=== PATIENT | male | born 1935 | race African-American/Black ===

== ENCOUNTER 2024-06-29 18:27 | Emergency (ER) | payer OTHER ==
[~2024-06-29] VITALS: Ht 180.3 cm; Wt 94.0 kg
[2024-06-29 18:30] VITALS: O2SAT 97
[2024-06-29 20:14] LABS: BASOPHILS % 0.5 % (0.0-2.0); EOSINOPHILS % 0.7 % (0.0-5.0); HEMOGLOBIN. 13.8 g/dL (14.0-18.0); LYMPHOCYTES % 15.4 % (20.0-50.0); MEAN CORPUSCULAR HGB CONC 32.1 g/dL (31.0-37.0); MEAN CORPUSCULAR VOLUME 83.9 fL (80.0-94.0); MEAN PLATELET VOLUME 7.6 fl (7.4-10.4); NEUTROPHILS % 73.4 % (40.0-76.0); PLATELET 425 x1000/uL (130-400); RED BLOOD CELL COUNT 5.13 mill/uL (4.7-6.1); WHITE BLOOD COUNT 12.1 x1000/uL (4.5-11.0)
[2024-06-29 20:22] LABS: CARBON DIOXIDE 25 mEq/L (21-32); CHLORIDE 100 mEq/L (98-107); POTASSIUM 4.3 mEq/L (3.5-5.1); SODIUM 133 mEq/L (136-145)
[2024-06-29 20:23] LABS: CALCIUM 9.6 mg/dL (8.7-10.4)
[2024-06-29 20:27] LABS: CREATININE 2.9 mg/dL (0.6-1.3)
[2024-06-29 20:28] LABS: GLUCOSE 280 mg/dL (70-105); UREA NITROGEN BLOOD 29 mg/dL (9-23)
[2024-06-29 20:29] LABS: ALANINE AMINOTRANSFERASE < 7 IU/L (10-49); ALBUMIN 3.8 g/dL (3.2-4.8); ASPARTATE AMINOTRANSFERASE 16 IU/L (<34)
[2024-06-29 20:30] LABS: BILIRUBIN DIRECT 0.2 mg/dL (<=3.0); BILIRUBIN TOTAL 0.7 mg/dL (0.1-1.0); PROTEIN TOTAL 7.4 g/dL (6.0-8.3)
[2024-06-29 20:50] LABS: TROPONIN I HIGH SENSITIVITY 191 ng/L (3.0-53)
[2024-06-29] MEDS ORDERED: VANCOMYCIN 1G PREMIX 200 ML IV ONE (22:15)
[2024-06-29] MEDS: SODIUM CHLORIDE 0.9% 1000ML BAG (SEPSIS BOLUS) IV ONE (22:25)
[2024-06-29] MEDS: PIPERACILLIN/TAZO 3.375G/50ML 50 ML IV ONE (22:26)
[2024-06-29] MEDS ORDERED: MAGNESIUM/ALUMINUM HYDROXIDE/SIMETHICONE 30ML UDC PO PRN (23:00)
[2024-06-29] MEDS ORDERED: DEXTROSE 50% WATER 50ML SYRINGE IV PRN (23:00)
[2024-06-29] MEDS ORDERED: ONDANSETRON HCL 4MG/2ML INJ IV PRN (23:00)
[2024-06-29] MEDS ORDERED: DOCUSATE SODIUM 100MG CAPSULE PO PRN (23:00)
[2024-06-29] MEDS ORDERED: ACETAMINOPHEN 325MG TABLET PO PRN (23:00)
[2024-06-29] MEDS ORDERED: CLONIDINE 0.1MG TABLET PO PRN (23:00)
[2024-06-29] MEDS ORDERED: IPRATROPIUM/ALBUTEROL 0.5-3(2.5)MG/3ML NEB HHN PRN (23:00)
[2024-06-30] MEDS: VANCOMYCIN 1GM PMX (XELLIA) 200 ML IV NR (00:49)
[2024-06-30 00:53] LABS: CLARITY URINE CLEAR (CLEAR); COLOR URINE YELLOW (YELLOW); GLUCOSE URINE NEGATIVE (NEGATIVE); KETONES URINE TRACE (NEGATIVE); LEUKOCYTE ESTERASE URINE TRACE (NEGATIVE); NITRITE URINE NEGATIVE (NEGATIVE); OCCULT BLOOD URINE NEGATIVE (NEGATIVE); PH URINE 5.5 (4.5-8.0); PROTEIN URINE 2+ (NEGATIVE); SPECIFIC GRAVITY URINE 1.016 (1.005-1.030); UROBILINOGEN URINE 0.2 E.U./dL (0.2-1.0)
[2024-06-30 01:04] LABS: TROPONIN I HIGH SENSITIVITY 192 ng/L (3.0-53)
[2024-06-30 01:05] LABS: BACTERIA URINE NONE SEEN; RBC URINE 0-2 /hpf (0-2); SQUAMOUS EPITHELIAL CELL URINE NONE SEEN /lpf (RARE/1+); WBC URINE 0-2 /hpf (0-2)
[2024-06-30] MEDS: SODIUM CHLORIDE 0.9% 1,000 ML IV SCH (01:28)
[2024-06-30 02:00] VITALS: TEMP 37.00296
[2024-06-30 02:28] VITALS: TEMP 98.6
[2024-06-30 03:30] VITALS: BP 144/84; PULSE 80; RESP 18; O2SAT 98
[2024-06-30] MEDS ORDERED: INSULIN LISPRO 100 UNITS/ML SUBCUT SCH ×2 (08:20)
[2024-06-30] MEDS ORDERED: FAMOTIDINE 20MG/2ML VIAL IV SCH (09:00)
[2024-06-30] MEDS ORDERED: BLOOD SUGAR DIAGNOSTIC STRIP TEST SCH (09:00)
[2024-06-30] MEDS ORDERED: PIPERACILLIN/TAZO 3.375G/50ML IV SCH (09:00)
[2024-06-30] MEDS ORDERED: ENOXAPARIN 30MG/0.3ML SYR SUBCUT SCH (09:00)
[2024-06-30] MEDS ORDERED: PIPERACILLIN/TAZOBACTAM 3.375 G in DEXTROSE 5% WATER 50 ML IV SCH (20:00)
[2024-07-01] MEDS ORDERED: VANCOMYCIN 1GM PMX (XELLIA) 200 ML IV SCH (22:00)
== END 2024-06-30 04:01 | disposition short-term general hospital (02) ==
LOC: ER 18:27
DX: A41.9 Sepsis, unspecified organism (principal); R65.20 Severe sepsis without septic shock; R79.89 Other specified abnormal findings of blood chemistry; N17.9 Acute kidney failure, unspecified; E11.9 Type 2 diabetes mellitus without complications; I10 Essential (primary) hypertension; Z20.822 Contact with and (suspected) exposure to COVID-19
CPT/HCPCS: 99291; 93970; 96365; 96366; 80076; 80048; 83036; 83605; 85025; 87040; 84484 ×2; 84145; 71045; 93005; 96375; 87426; 81003; 85379; 36415; J3370; J2543; J7030

== ENCOUNTER 2024-08-11 17:15 | Inpatient (IN) | payer OTHER, MEDICARE ==
[~2024-08-11] VITALS: Ht 182.9 cm; Wt 88.9 kg
[2024-08-11] MEDS: SODIUM CHLORIDE 0.45% 1,000 ML IV SCH (03:40)
[2024-08-11] MEDS: SODIUM CHLORIDE 0.9% (SEPSIS BOLUS) IV ONE (17:59)
[2024-08-11] MEDS: LABETALOL 5MG/ML 4ML INJ IV ONE (19:24)
[2024-08-11 20:01] LABS: CLARITY URINE CLEAR (CLEAR); COLOR URINE YELLOW (YELLOW); GLUCOSE URINE 1+ (NEGATIVE); KETONES URINE NEGATIVE (NEGATIVE); LEUKOCYTE ESTERASE URINE NEGATIVE (NEGATIVE); NITRITE URINE NEGATIVE (NEGATIVE); OCCULT BLOOD URINE NEGATIVE (NEGATIVE); PH URINE 7.5 (4.5-8.0); PROTEIN URINE 2+ (NEGATIVE); SPECIFIC GRAVITY URINE 1.009 (1.005-1.030); UROBILINOGEN URINE 0.2 E.U./dL (0.2-1.0)
[2024-08-11 20:18] LABS: BACTERIA URINE TRACE; SQUAMOUS EPITHELIAL CELL URINE RARE /lpf (RARE/1+)
[2024-08-11 20:19] LABS: RBC URINE 0-2 /hpf (0-2); WBC URINE 0-2 /hpf (0-2)
[2024-08-11 20:29] LABS: HEMATOCRIT. 46.6 % (42.0-52.0); HEMOGLOBIN. 14.8 g/dL (14.0-18.0); MEAN CORPUSCULAR HEMOGLOBIN 26.5 pg (28.0-32.0); MEAN CORPUSCULAR HGB CONC 31.7 g/dL (31.0-37.0); MEAN CORPUSCULAR VOLUME 83.6 fL (80.0-94.0); MEAN PLATELET VOLUME 7.3 fl (7.4-10.4); PLATELET 397 x1000/uL (130-400); RED BLOOD CELL COUNT 5.57 mill/uL (4.7-6.1); RED CELL DISTRIBUTION WIDTH 14.8 % (11.6-14.6); WHITE BLOOD COUNT 10.9 x1000/uL (4.5-11.0)
[2024-08-11 20:34] LABS: CHLORIDE 104 mEq/L (98-107); POTASSIUM 3.6 mEq/L (3.5-5.1); SODIUM 139 mEq/L (136-145)
[2024-08-11 20:35] LABS: CARBON DIOXIDE 26 mEq/L (21-32)
[2024-08-11 20:36] LABS: CALCIUM 9.9 mg/dL (8.7-10.4)
[2024-08-11 20:38] LABS: DIFFERENTIAL COMMENT 1
[2024-08-11 20:40] LABS: GLUCOSE 228 mg/dL (70-105)
[2024-08-11 20:41] LABS: INR 1.1; UREA NITROGEN BLOOD 14 mg/dL (9-23)
[2024-08-11 20:42] LABS: ALANINE AMINOTRANSFERASE < 7 IU/L (10-49); ALBUMIN 4.3 g/dL (3.2-4.8); ASPARTATE AMINOTRANSFERASE 19 IU/L (<34)
[2024-08-11 20:43] LABS: BILIRUBIN DIRECT 0.2 mg/dL (<=3.0); BILIRUBIN TOTAL 0.6 mg/dL (0.1-1.0); PROTEIN TOTAL 8.2 g/dL (6.0-8.3)
[2024-08-11 20:55] LABS: CREATININE 1.4 mg/dL (0.6-1.3); LACTIC ACID 3.6 mmol/L (0.4-2.0); TROPONIN I HIGH SENSITIVITY 177 ng/L (3.0-53)
[2024-08-11] MEDS: CLOPIDOGREL 75MG TABLET PO NR (21:30)
[2024-08-11] MEDS: ASPIRIN 325MG EC TABLET PO NR (21:30)
[2024-08-11] MEDS: OLANZAPINE 5MG TABLET ODT PO ONE (21:48)
[2024-08-11 21:53] LABS: PLATELET ESTIMATE NORMAL
[2024-08-11 21:54] LABS: ANISOCYTOSIS 1+
[2024-08-11] MEDS ORDERED: ACETAMINOPHEN 325MG TABLET PO PRN ×2 (23:00)
[2024-08-11] MEDS ORDERED: GUAIFENESIN 200MG/10ML SUGAR FREE UDC PO PRN (23:00)
[2024-08-11] MEDS ORDERED: ONDANSETRON HCL 4MG/2ML INJ IV PRN (23:00)
[2024-08-11] MEDS ORDERED: DOCUSATE SODIUM 100MG CAPSULE PO PRN (23:00)
[2024-08-11] MEDS ORDERED: IPRATROPIUM/ALBUTEROL 0.5-3(2.5)MG/3ML NEB HHN PRN (23:00)
[2024-08-11] MEDS ORDERED: MAGNESIUM/ALUMINUM HYDROXIDE/SIMETHICONE 30ML UDC PO PRN (23:00)
[2024-08-11] MEDS ORDERED: DEXTROSE 50% WATER 50ML SYRINGE IV PRN (23:00)
[2024-08-11] MEDS: CLONIDINE 0.1MG TABLET PO PRN (23:18)
[2024-08-12] VITALS (7 sets, daily range): BP systolic 109–142; BP diastolic 75–90; PULSE 75–100; RESP 17–20; TEMP 36.00288–36.3068; O2SAT 96–99
[2024-08-12] MEDS: HYDRALAZINE 20MG/ML VIAL IV PRN (00:23)
[2024-08-12] MEDS: AMLODIPINE 10MG TABLET PO SCH (00:23)
[2024-08-12 02:11] LABS: AMMONIA < 17 uMol/L (<32)
[2024-08-12 02:12] LABS: PHOSPHORUS 1.5 mg/dL (2.5-4.9)
[2024-08-12] MEDS: BLOOD SUGAR DIAGNOSTIC STRIP TEST SCH (06:24)
[2024-08-12] MEDS: INSULIN LISPRO 100 UNITS/ML SUBCUT SCH (06:45)
[2024-08-12] MEDS: ASPIRIN 81MG EC TABLET PO SCH (09:14)
[2024-08-12] MEDS: PANTOPRAZOLE SODIUM 40 MG/VIAL IV SCH (09:14)
[2024-08-12] MEDS: ENOXAPARIN 30MG/0.3ML SYR SUBCUT SCH (09:15)
[2024-08-12] MEDS ORDERED: METF-1150 PO (11:03)
[2024-08-12] MEDS: MAGNESIUM 2 G PREMIX 50 ML IV NR (12:36)
[2024-08-12 13:22] LABS: BASOPHILS % 0.8 % (0.0-2.0); HEMATOCRIT. 45.5 % (42.0-52.0); HEMOGLOBIN. 14.2 g/dL (14.0-18.0); LYMPHOCYTES % 26.8 % (20.0-50.0); MEAN CORPUSCULAR HEMOGLOBIN 26.3 pg (28.0-32.0); MEAN CORPUSCULAR HGB CONC 31.3 g/dL (31.0-37.0); MEAN CORPUSCULAR VOLUME 83.9 fL (80.0-94.0); MEAN PLATELET VOLUME 7.6 fl (7.4-10.4); MONOCYTES % 11.7 % (2.0-8.0); NEUTROPHILS % 59.7 % (40.0-76.0); PLATELET 411 x1000/uL (130-400); RED BLOOD CELL COUNT 5.43 mill/uL (4.7-6.1); RED CELL DISTRIBUTION WIDTH 15.1 % (11.6-14.6); WHITE BLOOD COUNT 12.6 x1000/uL (4.5-11.0)
[2024-08-12 13:26] LABS: CALCIUM 9.9 mg/dL (8.7-10.4)
[2024-08-12 13:30] LABS: CREATININE 1.4 mg/dL (0.6-1.3)
[2024-08-12 13:35] LABS: T4 FREE 1.8 ng/dL (0.89-1.76); THYROID STIMULATING HORMONE 1.4 uIU/mL (0.55-4.78)
[2024-08-12] MEDS ORDERED: SODIUM PHOSPHATE 15 MMOL in DEXT 5% WATER 245 ML IV NR (15:00)
[2024-08-12 16:54] LABS: SODIUM URINE RANDOM 45 mEq/L
[2024-08-12 17:02] LABS: PROTEIN URINE RANDOM 211 mg/dL; UREA NITROGEN URINE RANDOM 565 mg/dL
[2024-08-12] MEDS: POTASSIUM PHOSPHATE 15MMOL in DEXTROSE 5% WATER 250ML IV NR (17:49)
[2024-08-12 18:04] LABS: TROPONIN I HIGH SENSITIVITY 198 ng/L (3.0-53)
[2024-08-12] MEDS: ATORVASTATIN CALCIUM 40MG TABLET PO SCH (21:51)
[2024-08-13] VITALS (7 sets, daily range): BP systolic 127–169; BP diastolic 71–107; PULSE 71–90; RESP 18–20; TEMP 36.00288–37.05852; O2SAT 95–100
[2024-08-13 13:59] LABS: CARBON DIOXIDE 26 mEq/L (21-32); CHLORIDE 103 mEq/L (98-107); POTASSIUM 4.3 mEq/L (3.5-5.1); SODIUM 137 mEq/L (136-145)
[2024-08-13 14:01] LABS: CALCIUM 9.8 mg/dL (8.7-10.4)
[2024-08-13 14:06] LABS: CREATININE 1.3 mg/dL (0.6-1.3); GLUCOSE 173 mg/dL (70-105); UREA NITROGEN BLOOD 15 mg/dL (9-23)
[2024-08-13 14:07] LABS: BASOPHILS % 0.8 % (0.0-2.0); EOSINOPHILS % 3.4 % (0.0-5.0); HEMATOCRIT. 44.6 % (42.0-52.0); HEMOGLOBIN. 13.9 g/dL (14.0-18.0); MEAN CORPUSCULAR HEMOGLOBIN 26.4 pg (28.0-32.0); MEAN CORPUSCULAR HGB CONC 31.2 g/dL (31.0-37.0); MEAN CORPUSCULAR VOLUME 84.6 fL (80.0-94.0); MEAN PLATELET VOLUME 7.5 fl (7.4-10.4); MONOCYTES % 9.7 % (2.0-8.0); NEUTROPHILS % 58.1 % (40.0-76.0); PLATELET 378 x1000/uL (130-400); RED BLOOD CELL COUNT 5.28 mill/uL (4.7-6.1); WHITE BLOOD COUNT 10.4 x1000/uL (4.5-11.0)
[2024-08-13 14:08] LABS: PHOSPHORUS 3.2 mg/dL (2.5-4.9)
[2024-08-13 20:07] LABS: TROPONIN I HIGH SENSITIVITY 173 ng/L (3.0-53)
== END 2024-08-13 21:20 | disposition short-term general hospital (02) | DRG 280 ==
LOC: ER 17:15 → EDBEDREQ 18:15 → EDBEDREQTM 21:56 → 7EST 08-12 03:24
PROVIDERS: ADMIT Internal Medicine; ATTEND Internal Medicine
DX: I16.1 Hypertensive emergency (principal); G93.41 Metabolic encephalopathy; I21.4 Non-ST elevation (NSTEMI) myocardial infarction; N17.9 Acute kidney failure, unspecified; E87.20 Acidosis, unspecified; I10 Essential (primary) hypertension; E11.9 Type 2 diabetes mellitus without complications; E83.42 Hypomagnesemia; E83.39 Other disorders of phosphorus metabolism; E78.5 Hyperlipidemia, unspecified; I25.2 Old myocardial infarction; Z85.46 Personal history of malignant neoplasm of prostate
CPT/HCPCS: 36415; 71045; 80048; 80061; 80076; 81003; 82140; 82962; 83036; 83605; 83735; 83880; 84100; 84134; 84145; 84156; 84300; 84439; 84443; 84484; 84540; 85025; 92610; 93005; 93306; 93970; 97110; 97166; 97535; 99285; J0360; J1650; J1815; J2470; J3475; J3490; J7030; J7060